=== PATIENT | female | born 1960 | race Caucasian/White ===

== ENCOUNTER 2016-09-30 14:27 | Emergency (ER) | payer OTHER ==
--- NOTE | ~2016-09-30 | CT4 ---
[facility] A Service of [facility] RADIOLOGY TEXT RESULTS PATIENT: MELIDA WANG LOCATION: [facility] : 64 UNIT #: [id number] AGE: [address]: Rufus Louis MD SEX: F ORDER DR: [id number] [facility] [address] [place], [place] [address] [id number] MR#: [id number] Acc #: [id number] NAME: MELIDA WANG. : 1960 SEX: F STUDY DATE/TIME: 09/30/2016 14:59 UNIT: [facility] ROOM: STUDY DESCRIPTION: CT Abd and Pelv Wo Cont Attending Physician: Rufus Louis M.D. Ordering Physician: Rufus Louis M.D. Primary Care Physician: Keara Regalado M.D. MEDICAL IMAGING REPORT This report is preliminary unless electronic signature is present EXAM CT abdomen and pelvis without contrast INDICATIONS Right flank pain beginning yesterday at [address] of the abdomen and pelvis. This CT exam was performed with one or more of the following radiation dose reduction techniques: automatic exposure control, adjustment of mA and/or kV according to patient size, and iterative reconstruction. COMPARISON 06/03/2015. FINDINGS ABDOMEN WITHOUT CONTRAST: The included lung bases clear. 3.4 cm cyst segment 6 of the liver. Spleen, kidneys, adrenal glands and pancreas unremarkable. Previous cholecystectomy. Bowel loops non-dilated. Moderate colonic stool. No radiodense urinary system calculus or hydronephrosis. PELVIS WITHOUT CONTRAST: No radiodense bladder calculus. 3.4 cm cyst in the left adnexa. No aggressive appearing bone lesion. IMPRESSION 1. No acute findings. No radiodense urinary system calculus or hydronephrosis. 2. 3.4 cm cyst left adnexa is very similar to the prior. Probably represents a benign finding. [facility] A Service of [facility] RADIOLOGY TEXT RESULTS PATIENT: MELIDA WANG LOCATION: [facility] : 64 UNIT #: [id number] AGE: [address]: Rufus Louis MD SEX: F ORDER DR: Dictated by... Honorio Sanchez M.D. THIS IS AN ELECTRONICALLY VERIFIED REPORT Honorio Sanchez M.D. at 10/02/2016 6:59 AM EED/pcl TD: 09/30/2016 17:14 JOB #: [id number] MEDICAL IMAGING REPORT COPY
[2016-09-30 14:21] LABS: BASOPHIL# 0.1 X10e3 (0-0.3); BASOPHIL% 0.7 % (0-2.5); EOSINOPHIL# 0.2 X10e3 (0-0.7); EOSINOPHIL% 1.7 % (0.0-7.0); HEMATOCRIT 38.5 % (35.0-45.0); HEMOGLOBIN 12.9 gm/dL (12.0-16.0); LYMPHOCYTE# 3.1 X10e3 (1.0-3.5); LYMPHOCYTE% 35.7 % (17.0-45.0); MEAN CELL VOLUME 80.9 FL (83-96); MEAN CORPUSCULAR HEMOGLOBIN 27.2 PG (28-34); MEAN CORPUSCULAR HGB CONC 33.6 g/dL (30-36); MEAN PLATELET VOLUME 8.3 FL (6.5-11.5); MONOCYTE# 0.5 X10e3 (0-1.0); NEUTROPHIL# 4.9 X10e3 (1.5-7.1); NEUTROPHIL% 55.9 % (40-75); PLATELET COUNT 264 X10e3 (140-420); RED BLOOD COUNT 4.75 X10e (3.90-5.30); RED CELL DISTRIBUTION WIDTH 13.2 % (11.0-15.5); WHITE BLOOD COUNT 8.7 X10e3 (4.0-10.5)
[~2016-09-30 14:27] MED LIST: ANTIVERT12.5 MG PO; ANXIETY MED; CELEXA10 MG; CIPRO PO; DOXYCYCLINE HY100 M3; ESTRACE1 M1; FIORICET 50-321 EACH PO; FLEXERIL PO; FLEXERIL10 MG; IMITREX PO; IMODIUM2 MG PO; KETOPROFEN PO; PREVACID PO; PRILOSEC; TOPAMAX; ZOFRAN PO
[2016-09-30 14:49] LABS: DIFF IND NO
[2016-09-30 14:53] LABS: ALBUMIN SERUM 3.6 g/dL (3.5-5.0); ALKALINE PHOSPHATASE 71 U/L (32-92); ALT (SGPT) 43 U/L (10-40); AST (SGOT) 34 U/L (10-42); BILIRUBIN, DIRECT 0.1 mg/dL (0.0-0.2); BILIRUBIN,INDIRECT 0.2 mg/dL (0.0-0.9); BILIRUBIN,TOTAL 0.3 mg/dL (0.2-2.0); BLOOD UREA NITROGEN 18 mg/dL (9-23); BUN/CREATININE RATIO 25.71; CALCIUM SERUM 8.9 mg/dL (8.4-10.2); CARBON DIOXIDE 24 mmol/L (22-31); CHLORIDE 109 mmol/L (100-111); CREATININE SERUM 0.7 mg/dL (0.6-1.4); GLOM FILT RATE Estimated ABOVE60 mL/min (>60); GLUCOSE FASTING 107 mg/dL (70-110); LIPASE 23 U/L (22-51); POTASSIUM 3.7 mmol/L (3.5-5.1); PROTEIN TOTAL SERUM 7.7 g/dL (6.0-8.3); SODIUM 136 mmol/L (135-145)
[2016-09-30 16:12] LABS: URINE SOURCE CLEAN CATCH
[2016-09-30 16:25] LABS: URINE APPEARANCE CLEAR; URINE BILIRUBIN NEG (NEG); URINE BLOOD TRACE (NEG); URINE COLOR YELLOW; URINE GLUCOSE NEG (NEG); URINE KETONE NEG (NEG); URINE LEUKOCYTE ESTERASE NEG (NEG); URINE NITRATE NEG (NEG); URINE PROTEIN NEG (NEG); URINE SPECIFIC GRAVITY 1.007 (1.003-1.035); URINE UROBILINOGEN 0.2 MG/DL (NEG)
[2016-09-30 16:28] LABS: URBCS1 AUWI 0-2 /[HPF] (0-2); URINE BACTERIA AUWI NEG (NEGATIVE); URINE SQUAMOUS EPITHELIAL CELL NONE SEEN /[HPF]; UWBCS1 AUWI 0-2 (0-5)
[2016-09-30 16:30] LABS: CULTURE INDICATED? NO
== END 2016-09-30 16:50 | disposition home or self-care (01) ==
LOC: CED 14:27
PROVIDERS: Emergency Medicine
DX: N83.202 Unspecified ovarian cyst, left side (principal)
CPT/HCPCS: 36415; 74176; 80048; 80076; 81003; 83690; 85025; 96361; 96374; 99284; J1885